=== PATIENT | female | born 1955 | race Caucasian/White ===

== ENCOUNTER 2016-05-24 11:37 | Day surgery (SDC) | payer OTHER ==
[~2016-05-24] VITALS: Ht 167.6 cm; Wt 126.0 kg
[~2016-05-24 11:37] MED LIST: GLUCAGON,HUMAN RECOMBINANT 1 MG VIAL IVP ONE; LIDOCAINE HCL/PF 2% 5 ML VIAL INJ ONE; PROPOFOL 1% 20 ML VIAL IVP ONE; SUCCINYLCHOLINE CHLORIDE 20 MG/ML 10 ML VIAL IVP ONE
[2016-05-24] MEDS ORDERED: SODIUM CHLORIDE 0.9% 1,000 ML IV ONE ×2 (11:47→12:00)
[2016-05-24] MEDS ORDERED: MIDAZOLAM HCL 2 MG/2 ML VIAL IVP ONE (12:00)
[2016-05-24] MEDS ORDERED: FentaNYL CITRATE-PF 100 MCG/2 ML VIAL IVP ONE (12:00)
[2016-05-24] MEDS ORDERED: MORP30TA71 PO (12:06)
[2016-05-24] MEDS ORDERED: CA/D1TAB7 PO (12:06)
[2016-05-24] MEDS ORDERED: LEVO25TA9 PO (12:06)
[2016-05-24] MEDS ORDERED: CHOL200018 PO (12:06)
[2016-05-24] MEDS ORDERED: HYDR-305 PO (12:06)
[2016-05-24] MEDS ORDERED: MORP30CP13 PO (12:06)
[2016-05-24] MEDS ORDERED: FAMO20 PO (12:06)
[2016-05-24] MEDS ORDERED: DOCU100C19 PO (12:06)
[2016-05-24] MEDS ORDERED: DULO60CA44 PO (12:06)
[2016-05-24] MEDS ORDERED: BACL10TA PO (12:06)
[2016-05-24] MEDS ORDERED: PRAV10TA39 PO (12:06)
[2016-05-24] MEDS ORDERED: DULO30CA2 PO (12:06)
[2016-05-24] MEDS ORDERED: TOPI25 PO (12:06)
[2016-05-24] MEDS ORDERED: ROPI2 PO (12:06)
[2016-05-24 12:22] LABS: BASOPHILS % (AUTO) 0.3 % (0.0-2.0); EOSINOPHILS % (AUTO) 1.8 % (1.0-6.0); HEMATOCRIT 41.4 % (36-46); HEMOGLOBIN 13.6 g/dL (12.0-16.0); LYMPHOCYTES % (AUTO) 39.8 % (22.0-44.0); MEAN CORPUSCULAR HEMOGLOBIN 28.8 pg (26.0-34.0); MEAN CORPUSCULAR VOLUME 87 fL (80-100); MONOCYTES # (AUTO) 0.9 K/uL (0.1-1.0); MONOCYTES % (AUTO) 9.3 % (2.0-9.0); NEUTROPHILS # (AUTO) 4.9 K/uL (1.8-7.7); NEUTROPHILS % (AUTO) 48.8 % (40.0-70.0); PLATELET COUNT (AUTO) 271 K/uL (150-450); RED BLOOD CELL COUNT(AUTO) 4.74 MIL/uL (4.00-5.20); RED CELL DISTRIBUTION WIDTH 14.3 % (11.5-14.5); WHITE BLOOD COUNT (AUTO) 10.1 K/uL (4.5-11.0)
[2016-05-24 12:32] LABS: ANION GAP 10 mmol/L (8-16); CALCIUM, TOTAL 9.2 mg/dL (8.8-10.5); CARBON DIOXIDE 25 mmol/L (22-29); CHLORIDE 103 mmol/L (98-107); CREATININE 0.92 mg/dL (0.60-1.30); GLOMERULAR FILTR. RATE CALC > 60 mL/min (>60); POTASSIUM 4.3 mmol/L (3.5-5.1); SODIUM SERUM 138 mmol/L (136-145); UREA NITROGEN, BLOOD 18 mg/dL (7-18)
[2016-05-24 12:39] LABS: INR 1.1 (0.9-1.1); PROTHROMBIN TIME 11.2 SEC (9.4-11.6)
[2016-05-24] MEDS ORDERED: IOTHALAMATE MEGLUMINE 600 MG/ML 50 ML VIAL IVP ONE (13:42)
[2016-05-24] MEDS ORDERED: FentaNYL CITRATE-PF 100 MCG/2 ML VIAL ONE (14:03)
[2016-05-24] MEDS ORDERED: HYDROmorphone 2 MG/ML SYRINGE IVP PRN (15:30)
[2016-05-24] MEDS ORDERED: FentaNYL CITRATE-PF 100 MCG/2 ML VIAL IVP PRN (15:30)
[2016-05-24] MEDS ORDERED: MEPERIDINE-PF 25 MG/ML SYRINGE IVP PRN (15:30)
[2016-05-24] MEDS ORDERED: OXYGEN THERAPY IH SCH (20:00)
== END 2016-05-24 16:45 | disposition home or self-care (01) ==
LOC: SURGERY 11:37
PROVIDERS: ATTEND Specialist
DX: K86.89 Other specified diseases of pancreas (principal); I10 Essential (primary) hypertension; G89.4 Chronic pain syndrome; F32.9 Major depressive disorder, single episode, unspecified; E78.00 Pure hypercholesterolemia, unspecified; F41.9 Anxiety disorder, unspecified; M54.30 Sciatica, unspecified side; M54.9 Dorsalgia, unspecified; M19.90 Unspecified osteoarthritis, unspecified site; G47.33 Obstructive sleep apnea (adult) (pediatric); Z98.890 Other specified postprocedural states; Z96.653 Presence of artificial knee joint, bilateral; Z79.01 Long term (current) use of anticoagulants
CPT/HCPCS: 36415; 43260; 74329; 80048; 85025; 85610; 85730; 93005; C1769; J0330; J1610; J2250; J2704; J3010; J3490; J7030; Q9961; 74328